=== PATIENT | female | born 1940 | race Caucasian/White ===

== ENCOUNTER 2020-05-29 05:51 | Inpatient (IN) ==
[2020-05-29] MEDS ORDERED: Buffered Lidocaine 1% SYRIN 1 ml INTRADERM ONE ×2 (06:00→06:21)
[2020-05-29] MEDS ORDERED: Lactated Ringers 1000 ml BAG 1,000 ML IV SCH (06:00)
[2020-05-29] MEDS ORDERED: ceFAZolin 2 GM PREMIX 2 GM/50 ML BAG ONE (06:21)
[2020-05-29] MEDS ORDERED: Ondansetron 4 mg VIAL 2 MG/ML 2 ml VIAL ONE (07:05)
[2020-05-29] MEDS ORDERED: fentaNYL 100 mcg/2 ml 50 MCG/ML VIAL ONE (07:05)
[2020-05-29] MEDS ORDERED: Propofol 10 MG/ML 20 ML BTL ONE (07:05)
[2020-05-29] MEDS ORDERED: Rocuronium 50 mg VIAL 10 mg/ml 5 ml VIAL (50 mg) ONE (07:05)
[2020-05-29] MEDS ORDERED: Dexamethasone IV 4 MG/ML VIAL 1 ml VIAL ONE (07:05)
[2020-05-29] MEDS ORDERED: Midazolam 2 mg/2 ml VIAL 1 mg/ml 2 ml VIAL (2 mg) ONE (07:06)
[2020-05-29] MEDS ORDERED: Bacitracin INJECTION 50,000 UNITS ONE ×2 (07:06→09:48)
[2020-05-29] MEDS ORDERED: Lidocaine 1% w EPI 1:100,000 MDV 20 ML VIAL ONE (07:06)
[2020-05-29] MEDS ORDERED: Phenylephrine IV 10 MG/ML 1 ml VIAL ONE (07:08)
[2020-05-29] MEDS ORDERED: Lidocaine 2% PF 5 ML VIAL ONE (07:08)
[2020-05-29] MEDS ORDERED: Lidocaine 1% MPF 5 ML VIAL ONE (07:24)
[2020-05-29] MEDS ORDERED: ROPIVACAINE 5 MG/ML 30 ML BTL (0.5%) ONE (07:24)
[2020-05-29] MEDS ORDERED: fentaNYL 100 mcg/2 ml 50 MCG/ML VIAL IV PRN (08:14)
[2020-05-29] MEDS ORDERED: HYDROmorphone 1 MG/1 ML SYRINGE IV PRN (08:14)
[2020-05-29] MEDS ORDERED: Naloxone 0.4 mg VIAL 0.4 mg/ml 1 ml VIAL IV PRN (08:14)
[2020-05-29] MEDS ORDERED: Ondansetron 4 mg VIAL 2 MG/ML 2 ml VIAL IV PRN ×2 (08:14→12:06)
[2020-05-29] MEDS ORDERED: EPHEDrine (Pressors) 50 MG/ML VIAL ONE (08:18)
[2020-05-29] MEDS ORDERED: diPHENhydraMINE 25 mg TAB PO PRN (12:06)
[2020-05-29] MEDS ORDERED: Ondansetron ODT 4 mg TAB 4 MG TAB PO PRN (12:06)
[2020-05-29] MEDS: ceFAZolin 1 GM ADVAN 1 GM in NS 0.9% 50 ML 50 ML IVPB SCH (15:50)
[2020-05-29] MEDS ORDERED: LETROZOLE 2.5 MG PO SCH (18:00)
[2020-05-29] MEDS ORDERED: Metformin ER 750 mg TAB (NF) PO SCH (18:00)
[2020-05-29] MEDS ORDERED: PALBOCICLIB 125 MG PO SCH (18:00)
[2020-05-29] MEDS: Magnesium Hydroxide LIQ 30 ML UDC PO SCH (21:41)
[2020-05-29] MEDS: Aspirin EC 81 mg TAB.EC (enteric coated) PO SCH (21:41)
[2020-05-30] MEDS: ceFAZolin 1 GM ADVAN 1 GM in NS 0.9% 50 ML 50 ML IVPB SCH (00:11)
[2020-05-30] MEDS ORDERED: Morphine 2 MG/ML SYRINGE IV ONE (07:33)
[2020-05-30 07:58] LABS: Hematocrit 22 % (35-47); Hemoglobin 7.5 g/dL (12.0-16.0)
[2020-05-30 08:15] LABS: BUN/Creatinine Ratio 24.3 (8-20); Blood Urea Nitrogen 26 mg/dL (6-24); CO2 Carbon Dioxide 25 mmol/L (22-32); Calcium 9.1 mg/dL (8.6-10.3); Chloride 103 mmol/L (101-111); EGFR Non-African American 49.6 (>60); Glucose 123 mg/dL (70-100); Sodium 134 mmol/L (135-145)
[2020-05-30 08:16] LABS: Anion Gap 6 mmol/L (2-11)
[2020-05-30] MEDS ORDERED: Dextrose 50% Syringe 50 ml 25 GM/50 ML SYRINGE IV PUSH PRN (09:11)
[2020-05-30] MEDS: Magnesium Hydroxide LIQ 30 ML UDC PO SCH ×2 (09:44→21:32)
[2020-05-30] MEDS: Mirabegron 50 mg ER TAB (NF) PO SCH (09:52)
[2020-05-30] MEDS: Aspirin EC 81 mg TAB.EC (enteric coated) PO SCH (21:31)
[2020-05-30] MEDS: PALBOCICLIB 125 MG PO SCH (21:32)
[2020-05-30] MEDS: LETROZOLE 2.5 MG PO SCH (21:32)
[2020-05-31 05:27] LABS: Hematocrit 24 % (35-47); Hemoglobin 8.3 g/dL (12.0-16.0)
[2020-05-31] MEDS: Magnesium Hydroxide LIQ 30 ML UDC PO SCH ×2 (08:06→23:46)
[2020-05-31] MEDS: Mirabegron 50 mg ER TAB (NF) PO SCH (08:07)
[2020-05-31] MEDS ORDERED: Lactated Ringers 1000 ml BAG 1,000 ML IV ONE (12:55)
[2020-05-31] MEDS: LETROZOLE 2.5 MG PO SCH (21:40)
[2020-05-31] MEDS: PALBOCICLIB 125 MG PO SCH (21:41)
[2020-05-31] MEDS: Aspirin EC 81 mg TAB.EC (enteric coated) PO SCH (23:27)
[2020-06-01 06:53] LABS: Hematocrit 26 % (35-47); Hemoglobin 8.8 g/dL (12.0-16.0)
[2020-06-01] MEDS: Magnesium Hydroxide LIQ 30 ML UDC PO SCH (09:37)
[2020-06-01] MEDS: Mirabegron 50 mg ER TAB (NF) PO SCH (09:38)
[2020-06-01 15:42] VITALS: BP 119/56
[2020-06-03] MEDS ORDERED: Scopolamine PATCH Remove NOTE PATCH OFF SCH (13:00)
== END 2020-06-01 19:25 | disposition home or self-care (01) | DRG 483 ==
LOC: OR 05:51 → SSU 13:18
PROVIDERS: ADMIT Orthopaedic Surgery Sports Medicine; ATTEND Orthopaedic Surgery Sports Medicine

== ENCOUNTER 2021-04-08 05:01 | Inpatient (IN) ==
[2021-04-08] MEDS ORDERED: fentaNYL 100 mcg/2 ml 50 MCG/ML VIAL IV SLOW PU ONE (06:49)
[2021-04-08 07:21] LABS: Rapid COVID-19 Molecular Undetected (Undetected)
[2021-04-08] MEDS: Morphine 2 MG/ML SYRINGE IV PRN ×2 (09:50→15:49)
[2021-04-08 11:29] LABS: Hematocrit 25 % (35-47); Hemoglobin 8.7 g/dL (12.0-16.0); Mean Corpuscular HGB Conc 35 g/dL (31-36); Mean Corpuscular Hemoglobin 37 pg (27-31); Mean Corpuscular Volume 106 fL (80-97); Mean Platelet Volume 8.1 fL (7.4-10.4); Platelet Count 157 10^3/uL (150-450); Red Blood Count 2.38 10^6 /uL (3.70-4.87); Red Cell Distribution Width 18 % (10-15); White Blood Count 3.1 10^3/uL (3.5-10.8)
[2021-04-08 11:34] LABS: INR 1.38 (0.86-1.15)
[2021-04-08 11:42] LABS: Calcium 8.7 mg/dL (8.6-10.3); Potassium 4.3 mmol/L (3.5-5.0)
[2021-04-08 12:22] LABS: ABS Eosinophils 0.1 10^3/ul (0-0.6); ABS Lymphocytes 0.8 10^3/ul (1.0-4.8); ABS Monocytes 0.1 10^3/ul (0-0.8); Eosinophil % 2.4 %; Lymphocyte % 27.3 %; Nucleated Red Blood Cells % 0.2
[2021-04-08] MEDS ORDERED: Dextrose 50% Syringe 50 ml 25 GM/50 ML SYRINGE IV PUSH PRN (18:51)
[2021-04-08] MEDS: CMC:Solifenacin 5 mg TAB (NF) PO SCH (20:10)
[2021-04-08] MEDS: Aspirin EC 81 mg TAB.EC (enteric coated) PO SCH (20:10)
[2021-04-08] MEDS: PALBOCICLIB 125 MG PO SCH (20:17)
[2021-04-08] MEDS: LETROZOLE 2.5 MG PO SCH (20:17)
[2021-04-09] MEDS: Morphine 2 MG/ML SYRINGE IV PRN ×3 (04:07→17:56)
[2021-04-09 06:38] LABS: ABS Basophils 0.1 10^3/ul (0-0.2); ABS Eosinophils 0.1 10^3/ul (0-0.6); ABS Lymphocytes 0.9 10^3/ul (1.0-4.8); ABS Monocytes 0.1 10^3/ul (0-0.8); ABS Neutrophils 1.6 10^3/ul (1.5-7.7); Eosinophil % 2.6 %; Hematocrit 23 % (35-47); Lymphocyte % 32.9 %; Mean Corpuscular HGB Conc 35 g/dL (31-36); Mean Corpuscular Hemoglobin 36 pg (27-31); Mean Corpuscular Volume 105 fL (80-97); Mean Platelet Volume 8.2 fL (7.4-10.4); Platelet Count 130 10^3/uL (150-450); Red Blood Count 2.21 10^6 /uL (3.70-4.87); Red Cell Distribution Width 18 % (10-15); White Blood Count 2.6 10^3/uL (3.5-10.8)
[2021-04-09 06:43] LABS: INR 1.39 (0.86-1.15)
[2021-04-09] MEDS ORDERED: ceFAZolin 2 GM in NS PREMIX 2 GM/100 ML BAG IVPB ONE (07:00)
[2021-04-09 07:04] LABS: Anion Gap 8 mmol/L (2-11); Blood Urea Nitrogen 25 mg/dL (6-24); CO2 Carbon Dioxide 25 mmol/L (22-32); Calcium 8.4 mg/dL (8.6-10.3); Chloride 103 mmol/L (101-111); Glucose 93 mg/dL (70-100); Potassium 4.7 mmol/L (3.5-5.0); Sodium 136 mmol/L (135-145)
[2021-04-09] MEDS: NS 0.9% 1000 ml BAG 1,000 ML IV SCH (07:30)
[2021-04-09] MEDS ORDERED: Flu vaccine *QUAD* 2021-22* 0.5 ML SYRINGE IM ONE (09:00)
[2021-04-09 10:36] LABS: Troponin I 0.03 ng/mL (<0.03)
[2021-04-09 10:54] LABS: % Iron Saturation 10 % (15-55); Iron 22 ug/dL (50-212); Total Iron Binding Capacity 220 mcg/dL (250-450); Transferrin 157 mg/dL (203-362); Unsaturated Iron Binding < 205 ug/dL
[2021-04-09 11:14] LABS: Ferritin 454.6 ng/mL (11-307)
[2021-04-09 13:51] LABS: Troponin I 0.03 ng/mL (<0.03)
[2021-04-09 16:38] LABS: Troponin I 0.03 ng/mL (<0.03)
[2021-04-09] MEDS: CMC:Solifenacin 5 mg TAB (NF) PO SCH (20:34)
[2021-04-09] MEDS: LETROZOLE 2.5 MG PO SCH (20:35)
[2021-04-09] MEDS: Aspirin EC 81 mg TAB.EC (enteric coated) PO SCH (20:35)
[2021-04-09] MEDS: PALBOCICLIB 125 MG PO SCH (20:35)
[2021-04-10] MEDS: Morphine 2 MG/ML SYRINGE IV PRN (03:56)
[2021-04-10] MEDS: NS 0.9% 1000 ml BAG 1,000 ML IV SCH (06:10)
[2021-04-10 06:26] LABS: Hematocrit 30 % (35-47); Hemoglobin 10.4 g/dL (12.0-16.0); Mean Corpuscular HGB Conc 35 g/dL (31-36); Mean Corpuscular Hemoglobin 33 pg (27-31); Mean Corpuscular Volume 96 fL (80-97); Mean Platelet Volume 7.9 fL (7.4-10.4); Platelet Count 100 10^3/uL (150-450); Red Blood Count 3.14 10^6 /uL (3.70-4.87); Red Cell Distribution Width 24 % (10-15); White Blood Count 2.6 10^3/uL (3.5-10.8)
[2021-04-10 06:31] LABS: ABS Basophils 0.1 10^3/ul (0-0.2); ABS Eosinophils 0.1 10^3/ul (0-0.6); ABS Lymphocytes 0.8 10^3/ul (1.0-4.8); ABS Monocytes 0.1 10^3/ul (0-0.8); ABS Neutrophils 1.6 10^3/ul (1.5-7.7); Eosinophil % 3.6 %; Lymphocyte % 29.9 %; Nucleated Red Blood Cells % 0.1
[2021-04-10 06:33] LABS: INR 1.46 (0.86-1.15)
[2021-04-10 06:43] LABS: Potassium 4.4 mmol/L (3.5-5.0)
[2021-04-10] MEDS ORDERED: Phytonadione Oral Solution 5 MG/25 ML UDC PO ONE (08:00)
[2021-04-10 08:38] LABS: Anisocytosis 2+
[2021-04-10] MEDS ORDERED: ceFAZolin 2 GM in NS PREMIX 2 GM/100 ML BAG IVPB ONE (14:13)
[2021-04-10 14:34] LABS: INR 1.42 (0.86-1.15)
[2021-04-10] MEDS ORDERED: Lidocaine 2% PF 5 ML VIAL ONE ×2 (14:59→15:21)
[2021-04-10] MEDS ORDERED: Propofol 10 MG/ML 20 ML BTL ONE (14:59)
[2021-04-10] MEDS ORDERED: Rocuronium 50 mg VIAL 10 mg/ml 5 ml VIAL (50 mg) ONE ×2 (15:01→16:23)
[2021-04-10] MEDS ORDERED: fentaNYL 100 mcg/2 ml 50 MCG/ML VIAL ONE ×3 (15:01→17:41)
[2021-04-10] MEDS ORDERED: Phenylephrine IV 10 MG/ML 1 ml VIAL ONE (15:26)
[2021-04-10 16:32] LABS: PCO2 Arterial 26 mmHg (35-45); PO2 Arterial 67 mmHg (80-100)
[2021-04-10 17:31] LABS: PCO2 Arterial 36 mmHg (35-45); PO2 Arterial 192 mmHg (80-100)
[2021-04-10] MEDS ORDERED: Ondansetron 4 mg VIAL 2 MG/ML 2 ml VIAL ONE (17:32)
[2021-04-10] MEDS ORDERED: Midazolam 2 mg/2 ml VIAL 1 mg/ml 2 ml VIAL (2 mg) ONE (18:18)
[2021-04-10] MEDS ORDERED: Propofol 10 mg/ml 100 ML BTL 100 ML ONE (19:00)
[2021-04-10] MEDS ORDERED: Chlorhexidine MOUTHWASH 0.12% 15 ML UDC TOPICAL SCH (19:00)
[2021-04-10] MEDS: Lactated Ringers 1000 ml BAG 1,000 ML IV SCH (20:00)
[2021-04-10] MEDS: Aspirin EC 81 mg TAB.EC (enteric coated) PO SCH (21:16)
[2021-04-10] MEDS: PALBOCICLIB 125 MG PO SCH (21:17)
[2021-04-10] MEDS: LETROZOLE 2.5 MG PO SCH (21:17)
[2021-04-10] MEDS: Chlorhexidine MOUTHWASH 0.12% 15 ML UDC TOPICAL SCH (21:18)
[2021-04-10] MEDS: CMC:Solifenacin 5 mg TAB (NF) PO SCH (21:18)
[2021-04-10 21:36] LABS: Hematocrit 34 % (35-47); Hemoglobin 11.7 g/dL (12.0-16.0); Mean Corpuscular HGB Conc 34 g/dL (31-36); Mean Corpuscular Hemoglobin 31 pg (27-31); Mean Corpuscular Volume 92 fL (80-97); Platelet Count 84 10^3/uL (150-450); Red Blood Count 3.72 10^6 /uL (3.70-4.87); Red Cell Distribution Width 23 % (10-15)
[2021-04-10 21:54] LABS: Calcium 7.8 mg/dL (8.6-10.3); Phosphorus 3.3 mg/dL (2.5-5.0); Potassium 4.2 mmol/L (3.5-5.0)
[2021-04-10 22:12] LABS: Magnesium 0.7 mg/dL (1.9-2.7)
[2021-04-10] MEDS ORDERED: Magnesium Sulf 4 GM/100 ML IV 4,000 MG/100 ML BAG IVPB ONE (22:14)
[2021-04-10 22:22] LABS: ABS Lymphocytes 0.5 10^3/ul (1.0-4.8); ABS Monocytes 0.1 10^3/ul (0-0.8); ABS Neutrophils 1.4 10^3/ul (1.5-7.7); Eosinophil % 2.4 %; Lymphocyte % 25.3 %; Nucleated Red Blood Cells % 0.1
[2021-04-10] MEDS ORDERED: Ondansetron 4 mg VIAL 2 MG/ML 2 ml VIAL IV PRN (22:56)
[2021-04-10] MEDS: Propofol 10 mg/ml 100 ML BTL 100 ML IV SCH (23:09)
[2021-04-10] MEDS ORDERED: Magnesium Hydroxide LIQ 30 ML UDC PO PRN (23:16)
[2021-04-11] MEDS ORDERED: Magnesium Sulf 4 GM/100 ML IV 4,000 MG/100 ML BAG IVPB ONE (01:30)
[2021-04-11] MEDS: ceFAZolin 1 GM Q8H (ADVAN) IVPB SCH ×3 (01:42→16:25)
[2021-04-11] MEDS: Chlorhexidine MOUTHWASH 0.12% 15 ML UDC TOPICAL SCH ×3 (01:46→18:26)
[2021-04-11] MEDS ORDERED: Lactated Ringers 500 ml BAG 500 ML IV ONE (02:08)
[2021-04-11] MEDS: Lactated Ringers 1000 ml BAG 1,000 ML IV SCH (02:38)
[2021-04-11] MEDS: Propofol 10 mg/ml 100 ML BTL 100 ML IV SCH (03:59)
[2021-04-11 05:03] LABS: Activated Partial Thrombo Time 27.3 seconds (26.0-38.0); INR 1.2 (0.86-1.15)
[2021-04-11 05:07] LABS: Magnesium 3.5 mg/dL (1.9-2.7); Phosphorus 2.9 mg/dL (2.5-5.0); Potassium 3.7 mmol/L (3.5-5.0)
[2021-04-11 05:19] LABS: ABS Lymphocytes 0.4 10^3/ul (1.0-4.8); ABS Monocytes 0.1 10^3/ul (0-0.8); Eosinophil % 2.9 %; Hematocrit 33 % (35-47); Hemoglobin 11.5 g/dL (12.0-16.0); Lymphocyte % 28.2 %; Mean Corpuscular HGB Conc 34 g/dL (31-36); Mean Corpuscular Hemoglobin 31 pg (27-31); Mean Corpuscular Volume 91 fL (80-97); Mean Platelet Volume 7.7 fL (7.4-10.4); Nucleated Red Blood Cells % 0.2; Platelet Count 79 10^3/uL (150-450); Red Blood Count 3.69 10^6 /uL (3.70-4.87); Red Cell Distribution Width 23 % (10-15); White Blood Count 1.6 10^3/uL (3.5-10.8)
[2021-04-11] MEDS ORDERED: Potassium Chloride LIQUID 20 MEQ/15 ML LIQUID PO ONE (05:19)
[2021-04-11] MEDS ORDERED: Lactated Ringers 1000 ml BAG 1,000 ML IV SCH ×2 (05:19→07:16)
[2021-04-11] MEDS: fentaNYL 100 mcg/2 ml 50 MCG/ML VIAL IV SLOW PU PRN ×4 (08:33→15:14)
[2021-04-11] MEDS: PALBOCICLIB 125 MG PO SCH (19:59)
[2021-04-11] MEDS: LETROZOLE 2.5 MG PO SCH (19:59)
[2021-04-11] MEDS: Aspirin EC 81 mg TAB.EC (enteric coated) PO SCH (19:59)
[2021-04-11] MEDS: CMC:Solifenacin 5 mg TAB (NF) PO SCH (19:59)
[2021-04-12 05:10] LABS: ABS Eosinophils 0.1 10^3/ul (0-0.6); ABS Lymphocytes 0.6 10^3/ul (1.0-4.8); ABS Monocytes 0.1 10^3/ul (0-0.8); ABS Neutrophils 1.1 10^3/ul (1.5-7.7); Eosinophil % 4.4 %; Hematocrit 30 % (35-47); Hemoglobin 10.5 g/dL (12.0-16.0); Lymphocyte % 29.5 %; Mean Corpuscular HGB Conc 35 g/dL (31-36); Mean Corpuscular Hemoglobin 32 pg (27-31); Mean Corpuscular Volume 92 fL (80-97); Mean Platelet Volume 8.3 fL (7.4-10.4); Nucleated Red Blood Cells % 0.1; Platelet Count 73 10^3/uL (150-450); Red Blood Count 3.25 10^6 /uL (3.70-4.87); Red Cell Distribution Width 23 % (10-15)
[2021-04-12 05:20] LABS: Calcium 8.4 mg/dL (8.6-10.3); Magnesium 1.8 mg/dL (1.9-2.7); Phosphorus 2.3 mg/dL (2.5-5.0); Potassium 4.2 mmol/L (3.5-5.0)
[2021-04-12] MEDS ORDERED: NS 0.9% 1000 ml BAG 1,000 ML IV SCH (12:00)
[2021-04-12] MEDS: Aspirin EC 81 mg TAB.EC (enteric coated) PO SCH (21:13)
[2021-04-12] MEDS: LETROZOLE 2.5 MG PO SCH (21:14)
[2021-04-12] MEDS: PALBOCICLIB 125 MG PO SCH (21:14)
[2021-04-12] MEDS: CMC:Solifenacin 5 mg TAB (NF) PO SCH (21:18)
[2021-04-13] MEDS ORDERED: Senna TAB 8.6 mg TAB PO PRN (10:06)
[2021-04-13] MEDS ORDERED: Magnesium Hydroxide LIQ 30 ML UDC PO PRN (10:06)
[2021-04-13] MEDS ORDERED: Polyethylene Glycol 3350 17 GM PACKET PO PRN (10:06)
[2021-04-13] MEDS: Aspirin EC 81 mg TAB.EC (enteric coated) PO SCH (21:11)
[2021-04-13] MEDS: CMC:Solifenacin 5 mg TAB (NF) PO SCH (21:11)
[2021-04-13] MEDS: Magnesium Hydroxide LIQ 30 ML UDC PO SCH (21:11)
[2021-04-13] MEDS: LETROZOLE 2.5 MG PO SCH (21:13)
[2021-04-13] MEDS: PALBOCICLIB 125 MG PO SCH (21:20)
[2021-04-14 06:26] LABS: Calcium 8.7 mg/dL (8.6-10.3); Potassium 4.1 mmol/L (3.5-5.0)
[2021-04-14 06:55] LABS: ABS Eosinophils 0.1 10^3/ul (0-0.6); ABS Lymphocytes 0.7 10^3/ul (1.0-4.8); ABS Monocytes 0.2 10^3/ul (0-0.8); ABS Neutrophils 0.8 10^3/ul (1.5-7.7); Eosinophil % 5.2 %; Hematocrit 29 % (35-47); Hemoglobin 10.2 g/dL (12.0-16.0); Lymphocyte % 38.3 %; Mean Corpuscular HGB Conc 35 g/dL (31-36); Mean Corpuscular Hemoglobin 32 pg (27-31); Mean Corpuscular Volume 93 fL (80-97); Mean Platelet Volume 8.4 fL (7.4-10.4); Nucleated Red Blood Cells % 0.1; Platelet Count 91 10^3/uL (150-450); Red Blood Count 3.13 10^6 /uL (3.70-4.87); Red Cell Distribution Width 22 % (10-15); White Blood Count 1.9 10^3/uL (3.5-10.8)
[2021-04-14] MEDS: Magnesium Hydroxide LIQ 30 ML UDC PO SCH ×2 (10:01→22:24)
[2021-04-14] MEDS: Aspirin EC 81 mg TAB.EC (enteric coated) PO SCH (22:20)
[2021-04-14] MEDS: CMC:Solifenacin 5 mg TAB (NF) PO SCH (23:01)
[2021-04-14] MEDS: LETROZOLE 2.5 MG PO SCH (23:15)
[2021-04-15 06:56] LABS: Hematocrit 29 % (35-47); Mean Corpuscular HGB Conc 34 g/dL (31-36); Mean Corpuscular Hemoglobin 32 pg (27-31); Mean Corpuscular Volume 93 fL (80-97); Mean Platelet Volume 8.1 fL (7.4-10.4); Platelet Count 103 10^3/uL (150-450); Red Blood Count 3.14 10^6 /uL (3.70-4.87); Red Cell Distribution Width 22 % (10-15); White Blood Count 2.2 10^3/uL (3.5-10.8)
[2021-04-15 07:01] LABS: ABS Eosinophils 0.1 10^3/ul (0-0.6); ABS Monocytes 0.3 10^3/ul (0-0.8); ABS Neutrophils 0.9 10^3/ul (1.5-7.7); Eosinophil % 4.3 %; Lymphocyte % 43.1 %; Nucleated Red Blood Cells % 0.1
[2021-04-15 07:20] LABS: Potassium 4.6 mmol/L (3.5-5.0)
[2021-04-15] MEDS: Magnesium Hydroxide LIQ 30 ML UDC PO SCH (08:56)
[2021-04-15 12:43] VITALS: BP 131/41
== END 2021-04-15 14:10 | disposition swing bed (61) | DRG 481 ==
LOC: ED 05:01 → SUATTDRO 07:26 → SSU 07:26 → ICU 04-10 19:04 → SSU 04-11 17:34
PROVIDERS: ADMIT Hospitalist; ATTEND Internal Medicine